=== PATIENT | female | born 1990 | race African-American/Black ===

== ENCOUNTER 2017-08-02 13:02 | Emergency (ER) | payer MEDICAID, OTHER ==
[~2017-08-02] VITALS: Ht 167.6 cm; Wt 56.7 kg
[2017-08-02 13:15] VITALS: BP 110/71
[2017-08-02 14:30] LABS: Urine RBC None Seen /hpf (0 - 4)
[2017-08-02 14:33] LABS: Basophils # (auto) 0.1 uL; Basophils % (auto) 1.7 % (0.0-2.0); CONDITION Y; Eosinophils # (auto) 0.4 uL; Eosinophils % (auto) 4.2 % (0.0-7.0); Hematocrit 38.7 % (36.0-46.0); Hemoglobin 12.9 g/dL (12.2-16.2); Lymphocytes # (auto) 2.9 uL; Lymphocytes % (auto) 32.7 % (10.0-50.0); Mean Corpuscular Hemoglobin 32.9 pg (28.0-32.0); Mean Corpuscular Hgb Conc. 33.4 g/dL (32.0-36.0); Mean Corpuscular Volume 98.3 fL (80.0-100.0); Mean Platelet Volume 7.9 fL (7.4-10.4); Monocytes # (auto) 0.3 uL; Monocytes % (auto) 3.8 % (0.0-12.0); Neutrophils # (auto) 5.2 uL; Neutrophils % (auto) 57.6 % (37.0-80.0); Platelet Count (auto) 349 10^3/uL (140-450); Red Cell Distribution Width 13.4 % (11.6-16.0)
[2017-08-02 14:42] LABS: Urine Bilirubin Negative (Negative); Urine Blood Negative /uL (Negative); Urine Color Yellow (Yellow); Urine Glucose Normal (Normal); Urine Ketone Negative (Negative); Urine Nitrite Negative (Negative); Urine Squamous Epithelial Cell FEW /hpf (<5); Urine Urobilinogen Normal (Negative); Urine pH 6.5 (5.0-8.0)
[2017-08-02 14:53] LABS: Albumin 3.6 g/dL (3.4-5.0); Calcium 8.3 mg/dL (8.5-10.1); Potassium 4.1 mmol/L (3.5-5.1)
[2017-08-02 14:54] LABS: BUN/Creatinine Ratio 15.1
[2017-08-02 14:57] LABS: Bilirubin, Total 0.2 mg/dL (0.2-1.0); Total Protein 6.5 g/dL (6.4-8.2)
== END 2017-08-02 20:30 | disposition left against medical advice (07) ==
LOC: ER 13:05
DX: R10.9 Unspecified abdominal pain (principal); Z53.21 Procedure and treatment not carried out due to patient leaving prior to being seen by health care provider
CPT/HCPCS: 36415; 80053; 81001; 84702; 85025